=== PATIENT | female | born 1950 | race African-American/Black ===

== ENCOUNTER → 2017-05-10 | Outpatient (CLI) | payer OTHER ==
[~2017-05-10] MED LIST: ALLOPURINOL 30300 M2 PO; AMARYL2 MG; AMOXICILLIN 50500 M1; ASPIRIN EC81 M1 PO; CARDIZEM; CARVEDILOL25 MG PO; CARVEDILOL6.25 MG PO; CELEXA40 MG PO; COLCRYS0.6 MG PO; ENDOCET 5-3251 EACH PO; FELODIPINE ER10 MG PO; GLUCOPHAGE XR500 MG; GLUCOPHAGE1000 MG PO; HYDROCODONE-AP1 EAC6 PO; IRON325 PO; LEXAPRO; LISINOPRIL2.5 MG; LOPERAMIDE 2 MG2 M1 PO; MOBIC7.5 MG PO; MULTIVITAMINS1 EAC7 PO; NEXIUM40 MG PO; PRINZIDE 20-121 EACH PO; SIMVASTATIN20 MG PO; ZANTAC 150MG T150 MG PO; ZOCOR 10 MG TAB10 MG; ZOFRAN ODT4 MG PO
== END ==
LOC: RAD 12:16
DX: Z12.31 Encounter for screening mammogram for malignant neoplasm of breast (principal)

== ENCOUNTER → 2017-09-18 | Outpatient (CLI) | payer OTHER ==
[~2017-09-18] VITALS: Ht 162.6 cm; Wt 92.3 kg
[~2017-09-18] MED LIST changes: +HYDROCODON-ACE1 EAC8 PO; +NABUMETONE 500500 M1 PO
--- NOTE | ~2017-09-18 | HPC ---
[facility] [address] [place] [address] PAIN MANAGEMENT CONSULTATION Name: TANYA HAY Room #: REG [facility].#: [id number] Admission: 09/18/17 Attend Phys: Jamir Barber DO Discharge: Date of : 50 Report #: [id number] THIS REPORT FOR: //name// CC: Jamir Worley MD DATE OF SERVICE: 09/18/2017 REFERRING PHYSICIAN: Loy Worley MD CHIEF COMPLAINT: Low back pain, right lower extremity pain with paresthesias, intermittent left lower extremity pain. HISTORY OF PRESENT ILLNESS: As you know, the patient is a very pleasant 67-year-old female who returns today in followup visit with recurrent low back pain, now reporting right and left lower extremity pain. She indicates pain is chronic, sharp and tenderness in sensation, exacerbated with standing, walking and activities, improves with medications, cold compresses and epidural injections. She reports pain score of 8/10. She indicates a 95% improvement in overall pain with the epidural injection provided at last visit, lasting for nearly 6 months. She returns today in followup visit to undergo the next in the series in hopes of building on success of previous intervention. She denies any changes in medical history. She is not on any anticoagulants and has had no injury or trauma that may have led to recurrence of pain. ALLERGIES: No known drug allergies. CURRENT MEDICATIONS: Hydrocodone, allopurinol, multivitamin, simvastatin, citalopram, aspirin, felodipine, metformin, and lisinopril/hydrochlorothiazide. SOCIAL HISTORY: The patient denies tobacco, IV or illicit drug use, admits to occasional alcoholic beverage. She is retired in 2007. She is unaccompanied today. IMAGING: No new imaging available. PHYSICAL EXAMINATION: VITAL SIGNS: Blood pressure 131/84, pulse 66, respiratory rate 16 and unlabored, the patient is 98% on room air, height 5 feet 4 inches tall, weight 203 pounds, and BMI calculated 34.9. GENERAL: Well-developed, well-nourished, well-hydrated, exogenously obese 67-year-old female, appearing her stated age, pain is rated around 8/10. HEENT: Normocephalic, atraumatic. Pupils are equal, round, and reactive to light. Extraocular muscles are intact. [address] [address] PAIN MANAGEMENT CONSULTATION Name: TANYA HAY Room #: REG CL [place]#: [id number] Admission: 09/18/17 Attend Phys: Jamir Barber DO Discharge: Date of : 50 Report #: [id number] EXTREMITIES: Show no clubbing, no cyanosis, and no edema. MUSCULOSKELETAL: Seated straight leg raising negative. Supine straight leg raising mildly positive on the right, negative left. Ranulfo's test is negative. Modified Gaenslen's positive for axial back pain. Gait is antalgic favoring right lower extremity over left. ASSESSMENT: 1. Symptomatic lumbar radiculopathy. 2. Displacement of lumbar intervertebral disk with radiculopathy. 3. Lumbosacral spondylosis with radiculopathy. 4. Lumbar degeneration. 5. Chronic intractable pain. PLAN: 1. The patient returns today in followup visit having received excellent benefit with previous epidural injection, 95% improvement in overall pain lasting for nearly 6 months. She returns today in followup visit with recurrent pain. She denies injury or trauma that may have led to symptoms. She has requested the repeat epidural injection be provided today. She was very pleased with the original series of epidural injections, hopeful to see similar improvement today. She was advised risks and benefits of the procedure, she states understood and wished to proceed. 2. The patient indicates that she has recently sustained a fall injuring the medial aspect of her right knee, I will send the patient for x-ray imaging, though I am not convinced we have fracture, I do wish to determine the extent of injury. I will send the patient for x-ray imaging and have this available for the patient tomorrow for review. 3. No medication changes were made at today's visit. The patient to continue current medical therapy as previously prescribed. 4. We will see the patient back in followup visit on an as needed basis for possible next in the series of epidural injections. PROCEDURE NOTE DESCRIPTION OF PROCEDURE: L5-S1 interlaminar epidural steroid injection under fluoroscopic guidance. This is the first procedure of the second series that the patient is undergoing. After obtaining written consent, the patient was taken back to the fluoroscopy suite, placed in a prone position with pillow under the abdomen to decrease lumbar lordosis. The skin overlying the lumbosacral area was then prepped and draped in aseptic fashion. The L5-S1 vertebral interspace was then identified by AP fluoroscopy. The skin and subcutaneous tissue overlying the target site of injection was anesthetized with 3 mL 1% lidocaine. [facility] [address] [place] [address] PAIN MANAGEMENT CONSULTATION Name: TANYA HAY Room #: REG [facility] [place]#: [id number] Admission: 09/18/17 Attend Phys: Jamir Barber DO Discharge: Date of : 50 Report #: [id number] A 20-gauge 4-1/2 Tuohy needle was then advanced under fluoroscopic guidance towards the epidural space using a midline approach. The epidural space was identified using loss of resistance to air technique. After negative aspiration for heme or cerebrospinal fluid, a total of 1 mL of Omnipaque was injected. A lumbar epidurogram was confirmed using both AP and lateral fluoroscopy. After negative aspiration for heme or cerebrospinal fluid, 5 mL of a solution containing 2 mL 40 mg per mL, 80 mg total triamcinolone, 3 mL lidocaine 1% was injected in increments. Contrast spread was noted posterior epidural space. The needle was then retracted approximately half way and needle tract flushed with 1 mL of 1% lidocaine. Needle was then removed. There were no apparent sensory or motor deficits in the lower extremity following the procedure. A sterile bandage was placed over the injection site. The heart rate, pulse, oximetry and blood pressure were continuously monitored after the procedure. There were no apparent complications. The patient tolerated the procedure well and was carefully escorted to the recovery room in stable condition. There were no apparent complications. After meeting discharge criteria, the patient was then discharged home. <ELECTRONICALLY SIGNED> By: Jamir Barber DO 09/24/17 0812 0817 1250 Jamir Barber DO /nt
[2017-09-18 11:14] VITALS: BP 131/84
== END | disposition home or self-care (01) ==
LOC: PAIN 07:10
DX: M51.16 Intervertebral disc disorders with radiculopathy, lumbar region (principal); M47.27 Other spondylosis with radiculopathy, lumbosacral region; G89.29 Other chronic pain; Z68.34 Body mass index [BMI] 34.0-34.9, adult; Z79.899 Other long term (current) drug therapy

== ENCOUNTER → 2019-09-03 | Outpatient (CLI) | payer OTHER ==
[~2019-09-03] VITALS: Ht 162.6 cm; Wt 89.4 kg
[~2019-09-03] MED LIST changes: +IRON18 M1 PO
[2019-09-03 08:58] VITALS: BP 155/106
--- NOTE | 2019-09-03 08:58 | NUR ---
Pain Clinic Assessment: 1. History of Osteoarthritis: Left Lower Extremity Right Lower Extremity History of Rheumatoid Arthritis: Not Applicable 2. Height: 5 ft. 4 in. 162.6 cm. Weight: 197.0 lb. oz. 89.359 kg. Patient's BMI: 33.8 3. Vital Signs: BP: 155/106 Pulse: 72 Resp: 18 Temp: 02 Sat: 98 ECG Mon: 4. Pain Intensity: 7 5. Fall Risk: Dizziness: N Needs help standing or walking: N Fallen in the last 3 months: N Fall risk comments: 6. Patient on Blood Thinner: None 7. History of Hypertension: Y 8. Opioid Therapy greater than 6 weeks: Y Opiate Contract Signed: 9. Risk Assessment Tool Provided: 10. Functional Assessment Tool: 11. Recreational Drug Use: Never Drug Type: Tobacco Use: Never Smoker Tobacco Type: Amount or Packs/day: How Many Years: Alcohol Use: No Frequency: Quant:
== END | disposition home or self-care (01) ==
LOC: PAIN 06-03 06:53
DX: M54.5 Low back pain (principal); M51.16 Intervertebral disc disorders with radiculopathy, lumbar region; M47.27 Other spondylosis with radiculopathy, lumbosacral region; G89.29 Other chronic pain; I10 Essential (primary) hypertension; Z98.890 Other specified postprocedural states; Z79.899 Other long term (current) drug therapy; Z88.8 Allergy status to other drugs, medicaments and biological substances

== ENCOUNTER → 2021-08-22 | Outpatient (CLI) | payer OTHER | LOC: BC 10:19 | PROVIDERS: ATTEND Family Medicine | DX: Z12.31 Encounter for screening mammogram for malignant neoplasm of breast (principal) ==

== ENCOUNTER 2021-11-28 10:43 | Observation (INO) | payer OTHER ==
[~2021-11-28] VITALS: Ht 162.6 cm; Wt 85.3 kg
[2021-11-28 10:44] VITALS: BP 114/58
[2021-11-28] MEDS ORDERED: FINASTERIDE5 MG PO (10:57)
[2021-11-28] MEDS ORDERED: CARVEDILOL12.5 MG PO (11:00)
[2021-11-28] MEDS ORDERED: DULOXETINE HCL60 MG PO (11:00)
[2021-11-28] MEDS ORDERED: ALLOPURINOL 10100 M1 PO (11:01)
[2021-11-28 11:20] LABS: ABSOLUTE NEUTROPHILS 2.4 thou/uL (1.4-8.2); BASOPHILS 1.2 % (0.0-2.0); EOSINOPHILS 7.7 % (0.0-3.0); HEMATOCRIT 33.8 % (37.0-47.0); LYMPHOCYTES 26.9 % (24.0-44.0); MCH 29.5 pg (26.0-34.0); MCHC 32.5 g/dL (28.0-37.0); MONOCYTES 12.1 % (1.0-8.0); PLATELET COUNT 222 thou/uL (150-400); POLYS 52.1 % (36.0-66.0); RBC 3.71 mil/uL (4.20-5.00); RDW 14.9 % (10.5-14.5); WBC 4.7 thou/uL (4.0-11.0)
[2021-11-28 11:59] LABS: CREATININE 1.8 mg/dL (0.6-1.0); POTASSIUM 4.5 mmol/L (3.5-5.1)
[2021-11-28 12:01] LABS: CALCIUM 9.5 mg/dL (8.5-10.1)
[2021-11-28 12:10] LABS: MAGNESIUM 1.9 mg/dL (1.8-2.4); TOTAL PROTEIN 7.4 g/dL (6.4-8.2)
[2021-11-28 12:11] LABS: ALBUMIN 3.6 g/dL (3.4-5.0); TOTAL BILIRUBIN 0.3 mg/dL (0.2-1.0)
[2021-11-28 21:31] VITALS: BP 119/75
--- NOTE | 2021-11-29 03:52 | NUR ---
PT ASSISTED TO THE RESTROOM
--- NOTE | 2021-11-29 04:12 | NUR ---
REPORT TO RODRIGO MACDONALD
[2021-11-29 04:28] VITALS: BP 118/61
[2021-11-29 04:34] VITALS: BP 133/79
[2021-11-29] MEDS ORDERED: MINOXIDIL2.5 MG PO (06:03)
--- NOTE | 2021-11-29 07:29 | NUR ---
0420 ARRIVED TO UNIT IN WHEELCHAIR FROM ER. DENIES COMPLAINTS OF LEFT ARM PAIN AT THIS TIME STATING IT COMES AND GOES. ADMISSION PROCESS STARTED AND COMPLETED. UP AD NOAH IN ROOM. ORIENTED TO ROOM AND FLOOR POLICIES. CONTINUE TO ASSES CLOSELY.
--- NOTE | 2021-11-29 08:06 | EKG ---
[place] [address] [place] [address] ELECTROCARDIOGRAM REPORT Name: TANYA HAY Room #: 218-P [facility] M.R.#: [id number] Admission: 11/28/21 Attend Phys: Harika Wilson MD Discharge: Date of : 50 Report #: [id number] 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: VLADIMIR : 1950 Requested By: Harika Wilson Order Number: [id number] MD: Alejandro Raygoza Measurements Intervals [place] Rate: 52 P: 237 TN: 164 QRS: 5 QRSD: 92 T: 177 QT: 444 QTc: 413 Interpretive Statements Sinus rhythm T wave abnormality, consider lateral ischemia Compared to ECG 08/26/2014 10:07:07 Sinus bradycardia no longer present Electronically Signed On 11-29-2021 8:06:34 [employer] by Alejandro Raygoza [email or web address] <ELECTRONICALLY SIGNED> By: Alejandro Raygoza MD, [facility] 11/29/21 0806 1043 1043 Alejandro Raygoza MD, FACC /EPI
[2021-11-29] MEDS ORDERED: ARTHRITIS PAIN100 GM TOP (09:48)
[2021-11-29 10:06] VITALS: BP 140/98
[2021-11-29 10:12] LABS: HEMATOCRIT 31.9 % (37.0-47.0); HEMOGLOBIN 10.6 gm/dL (12.0-15.0); MCH 30.3 pg (26.0-34.0); MCHC 33.1 g/dL (28.0-37.0); MCV 91.8 fL (80.0-100.0); RBC 3.48 mil/uL (4.20-5.00); RDW 15.1 % (10.5-14.5); WBC 4.2 thou/uL (4.0-11.0)
[2021-11-29 10:19] LABS: CALCIUM 9.8 mg/dL (8.5-10.1); CREATININE 1.6 mg/dL (0.6-1.0); POTASSIUM 4.4 mmol/L (3.5-5.1)
[2021-11-29 10:55] VITALS: BP 140/98
--- NOTE | 2021-11-29 14:15 | NUR ---
PT DISCHARGED AT 1412 THIS AFTERNOON. PT CONTINUING TO HAVE L SHOULDER PAIN UPON DISCHARGE BUT PRESCRIBED DICLOFENAC GEL THE PT IS LOOKING FORWARD TO USING TO HELP WITH PAIN RELIEF. PT DENIES CHEST PAIN, PRESSURE, OR ANY OTHER CARDIAC SIGNS AND SYMPTOMS. PT STATES, "EVERYONE HAS BEEN SO NICE TO ME HERE. I APPRECIATE EVERYONE AND EVERYTHING YOU'VE DONE FOR ME."
--- NOTE | 2021-11-29 14:42 | 2DMMODE ---
[facility] [address] [place] [address] 2 D/M-MODE ECHOCARDIOGRAM Name: TANYA HAY Room #: 218-P ADM Sarah M.R.#: [id number] Admission: 11/28/21 Attend Phys: Harika Wilson MD Discharge: Date of : 50 Report #: [id number] THIS REPORT FOR: cc: FAM - No family physician/PCP FAM - No family physician/PCP Frantz Richter MD ~ APPROVED REPORT Study performed: 11/29/2021 13:43:53 EXAM: Comprehensive 2D, Doppler, and color-flow Echocardiogram Patient Location: Bedside Room #: 218 Status: routine BSA: 1.91 HR: 63 bpm BP: 140/93 mmHg Rhythm: NSR Other Information Study Quality: Good Indications Diabetes Dyspnea Chest Pain Hypertension/HDD 2D Dimensions RVDd: 31.91 mm IVSd: 9.60 (7-11mm) LVOT Diam: 19.08 (18-24mm) LVDd: 43.61 mm PWd: 9.84 (7-11mm) Ascending Ao: 33.70 (22-36mm) LVDs: 28.94 (25-40mm) Left Atrium: 41.20 (27-40mm) Aortic Root: 33.67 mm IVC: 12.00 mm Volumes Left Atrial Volume (Systole) Single Plane 4CH: 190.08 mL Single Plane 2CH: 122.58 mL LA ESV Index: 86.00 mL/m2 Aortic Valve AoV Peak Trey.: 1.36 m/s [facility] [address] [place] [address] 2 D/M-MODE ECHOCARDIOGRAM Name: TANYA HAY Room #: 218-P [facility] M.R.#: [id number] Admission: 11/28/21 Attend Phys: Harika Wilson MD Discharge: Date of : 50 Report #: [id number] AO Peak Gr.: 7.44 mmHg LVOT Max P.88 mmHg LVOT Max V: 1.10 m/s NERY Vmax: 2.31 cm2 Mitral Valve E/A Ratio: 3.7 MV Decel. Time: 180.09 ms MV E Max Trey.: 1.14 m/s MV A Trey.: 0.31 m/s MV PHT: 52.23 ms IVRT: 101.50 ms Pulmonary Valve PV Peak Trey.: 1.12 m/s PV Peak Gr.: 5.02 mmHg Pulmonary Vein P Vein S: 0.49 m/s P Vein A: 0.26 m/s P Vein D: 0.42 m/s P Vein A Dur.: 96.9 msec P Vein S/D Ratio: 1.17 Tricuspid Valve TR Peak Trey.: 3.00 m/s TR Peak Gr.: 36.04 mmHg PA Pressure: 41.00 mmHg Left Ventricle The left ventricle is normal size. There is normal LV segmental wall motion. There is normal left ventricular wall thickness. The left ventricular systolic function is normal. The left ventricular ejection fraction is within the normal range. LVEF is 55-60%. Right Ventricle The right ventricle is normal size. The right ventricular systolic function is normal. Atria Left atrium is dilated. Right atrium is dilated. Aortic Valve The aortic valve is normal in structure. No aortic regurgitation is present. There is no aortic valvular stenosis. Mitral Valve The mitral valve is normal in structure. Mild to moderate mitral regurgitation. No evidence of mitral valve stenosis. [facility] [address] [place] [address] 2 D/M-MODE ECHOCARDIOGRAM Name: TANYA HAY Room #: 218-P [facility] M.R.#: [id number] Admission: 11/28/21 Attend Phys: Harika Wilson MD Discharge: Date of : 50 Report #: [id number] Tricuspid Valve The tricuspid valve is normal in structure. There is trace to mild tricuspid regurgitation. Estimated PAP 41 mmHg. There is mild-moderate pulmonary hypertension. Pulmonic Valve The pulmonary valve is normal in structure. There is no pulmonic valvular regurgitation. Great Vessels The aortic root is normal in size. IVC is normal in size and collapses >50% with inspiration. Pericardium There is no pericardial effusion. <Conclusion> The left ventricle is normal size. There is normal left ventricular wall thickness. The left ventricular systolic function is normal. The right ventricle is normal size. Left atrium is dilated. The aortic valve is normal in structure. Mild to moderate mitral regurgitation. There is trace to mild tricuspid regurgitation. Estimated PAP 41 mmHg. <ELECTRONICALLY SIGNED> By: Frantz Richter MD 11/29/211441 41 41 Frantz Richter MD /INF
== END 2021-11-29 15:14 | disposition home or self-care (01) ==
LOC: ER 10:43 → EROBS 15:14 → 2N 11-29 04:13
PROVIDERS: Nurse Practitioner; ADMIT Internal Medicine; ATTEND Internal Medicine
DX: R07.89 Other chest pain (principal); M25.512 Pain in left shoulder; M54.6 Pain in thoracic spine; Z20.822 Contact with and (suspected) exposure to COVID-19; R00.1 Bradycardia, unspecified; I10 Essential (primary) hypertension; E78.5 Hyperlipidemia, unspecified; E66.9 Obesity, unspecified; Z68.31 Body mass index [BMI] 31.0-31.9, adult; Z88.1 Allergy status to other antibiotic agents; Z88.8 Allergy status to other drugs, medicaments and biological substances; Z79.84 Long term (current) use of oral hypoglycemic drugs; Z79.899 Other long term (current) drug therapy; Z79.82 Long term (current) use of aspirin; Z90.710 Acquired absence of both cervix and uterus

== ENCOUNTER → 2021-12-12 | Outpatient (CLI) | payer OTHER ==
[~2021-12-12] MED LIST changes: +ALLOPURINOL 10100 M1 PO; +ARTHRITIS PAIN100 GM TOP; +CARVEDILOL12.5 MG PO; +DULOXETINE HCL60 MG PO; +FINASTERIDE5 MG PO; +MINOXIDIL2.5 MG PO
== END ==
LOC: SJCVCIMAG
PROVIDERS: ATTEND Internal Medicine Cardiovascular Disease
DX: I10 Essential (primary) hypertension (principal); R07.9 Chest pain, unspecified; E78.00 Pure hypercholesterolemia, unspecified; E11.9 Type 2 diabetes mellitus without complications; I25.10 Atherosclerotic heart disease of native coronary artery without angina pectoris; Z88.5 Allergy status to narcotic agent; Z79.82 Long term (current) use of aspirin; Z79.899 Other long term (current) drug therapy; Z79.84 Long term (current) use of oral hypoglycemic drugs; Z87.891 Personal history of nicotine dependence; Z72.89 Other problems related to lifestyle; Z82.49 Family history of ischemic heart disease and other diseases of the circulatory system